=== PATIENT | female | born 1985 | race Caucasian/White ===

== ENCOUNTER → 2018-01-29 | Outpatient (CLI) | payer MEDICAID | END | disposition home or self-care (01) | LOC: LABWHC1 11:01 | PROVIDERS: ATTEND Obstetrics & Gynecology | DX: N92.6 Irregular menstruation, unspecified (principal); R14.0 Abdominal distension (gaseous) | CPT/HCPCS: 36415; 82670; 83001; 84144; 84403 ==

== ENCOUNTER 2019-01-25 21:05 | Outpatient (CLI) | payer MEDICAID ==
[2019-01-25 21:58] VITALS: BP 129/81; PULSE 112; RESP 16; TEMP 97.1
[2019-01-25 22:02] LABS: Amorphous Sediment,Urine Rare /hpf; Appearance,Urine Cloudy (Clear); Bacteria,Urine Moderate /hpf; Bilirubin,Urine Negative (Negative); Blood,Urine Negative (Negative); Color,Urine Yellow; Glucose,Urine (UA) Negative (Negative); Ketones,Urine Negative (Negative); Leukocyte Esterase,Urine Large (Negative); Mucus,Urine Few /hpf; Nitrite,Urine Negative (Negative); PH, Urine 6.5 (5.0-8.0); Protein,Urine Trace (Negative); RBC,Urine 2 /hpf (0-5); Specific Gravity,Urine 1.025 (1.001-1.035); Squamous Epithelial Cell,Urine 2 /hpf (0-4); WBC,Urine 4 /hpf (0-5)
--- NOTE | 2019-01-31 10:10 | P.MSEPDOC ---
Presenting Problems - Arrival Data Date of Arrival on Unit: 01/25/19 Time of Arrival on Unit: 21:32 Mode of Transport: Ambulatory - Complaint OB-Reason for Admission/Chief Complaint: Pain Comment: Lower back pain that is intermittant down bilateral legs. Medical History - Information : 3 Para: 2 Term: 2 : 0 Abortions: Spontaneous or Elective: 0 Number of Living Children: 2 - Gestational Age Gestational Age by DELORES (wks/days): 32 Weeks and 6 Days Review of Systems - Review of Systems Constitutional: No problems Breast: No problems ENT: No problems Cardiovascular: No problems Respiratory: No problems Gastrointestinal: No problems Genitourinary: No problems Musculoskeletal: No problems Neurological: No problems Skin: No problems Vital Signs - Temperature Temperature: 97.1 F Temperature Source: Temporal Artery Scan - Pulse Right Brachial Pulse Rate: 112 Pulse Assessment Method: Automatic Cuff - Respirations Respiratory Rate: 16 Oxygen Delivery Method: Room Air O2 Sat by Pulse Oximetry: 100 - Blood Pressure Right Arm Blood Pressure: 129/81 Blood Pressure Mean: 97 Blood Pressure Source: Automatic Cuff Medical Screen Scoring (Pre) - Cervical Exam Dilation: 0 cm = 0 Membranes: Intact - Uterine Contractions Frequency: N/A Duration: N/A Intensity: N/A - Maternal Vital Signs Maternal Temperature: N/A Maternal Blood Pressure: N/A Signs of Preeclampsia: N/A Maternal Respirations: N/A - Pain Assessment Pain Location and Character: Lower, Back Pain Scale Used: Numeric (1 - 10) Pain Intensity: 8 Pain Description: *Acute, Sore Pain Frequency: Intermittent Pain Duration Units: Minutes Pain Behavior: Facial Grimacing Pain Aggravating Factors: None - Assessment Baseline FHR: 130 Heart Rate - NICHD Category: Category I (Normal) = 0 NST: Reactive Position: N/A Station: N/A - Total Score Total Score (Pre): 0 - Level of Risk Level of Risk: Low (0-5) Physician Notification (Pre) - Physician Notified Physician Notified Date: 01/25/19 Physician Notified Time: 21:32 Physician/Practitioner Notifed:: Dr. Das Spoke With: Dr. Das New Order Received: Yes - Notification Comment Comment: Dr. Das called and given report on pt in tr. Pt c/o. VS wnl. Reactive NST. No. contractions noted per toco or palpation. Orders recieved to collect and send UA and. check cervix. If UA results are negative pt to be d/c to home. Disposition - Disposition OB Disposition: Discharge to home Discharge Date: 01/25/19 Discharge Time: 22:28 I agree with the RN Medical Screening Exam: Yes Risk & Benefit of care provided described in d/c instruction: Yes Diagnosis: LOW BACK PAIN
== END 2019-01-25 22:28 | disposition home or self-care (01) ==
LOC: FBPOP 21:05
PROVIDERS: ATTEND Obstetrics & Gynecology Obstetrics
DX: O99.89 Other specified diseases and conditions complicating pregnancy, childbirth and the puerperium (principal); M54.5 Low back pain; Z3A.32 32 weeks gestation of pregnancy
CPT/HCPCS: 59025; 81001; 87086; 99213

== ENCOUNTER 2019-03-09 09:58 | Inpatient (IN) | payer MEDICAID ==
[2019-03-09] MEDS ORDERED: ceFAZolin IN SWFI 2 GM/20 ML SYRINGE IVP ONE (10:36)
[2019-03-09] MEDS ORDERED: LACTATED RINGERS 1,000 ML IV SCH (10:36)
[2019-03-09] MEDS ORDERED: LACTATED RINGERS 1,000 ML IV ONE (10:36)
[2019-03-09] MEDS ORDERED: CITRIC ACID-SODIUM CITRATE 15 ML CUP PO ONE (10:36)
[2019-03-09 10:43] VITALS: BMI 32.9
[2019-03-09 11:30] LABS: Basophils % (A) 0 %; Eosinophils % (A) 0 %; HCT 33.8 % (34.0-46.0); HGB 10.9 gm/dL (11.4-16.0); Hypochromasia Slight; Lymphocytes # (A) 1.3 k/uL (1.0-4.8); Lymphocytes % (A) 18 %; MCH 29.6 pg (25.0-35.0); MCHC 32.2 g/dL (31.0-37.0); MCV 92.1 fL (80.0-100.0); Mean Platelet Volume 8.2; Monocytes # (A) 0.3 k/uL (0-1.0); Monocytes % (A) 4 %; Neutrophils # (A) 5.3 k/uL (1.3-7.7); Neutrophils % (A) 75 %; Platelet Count 193 k/uL (150-450); RBC 3.67 m/uL (3.80-5.40); RDW 14.6 % (11.5-15.5); WBC 7.1 k/uL (3.8-10.6)
[2019-03-09] MEDS ORDERED: OXYTOCIN 10 UNIT/ML 1 ML VIAL ONE (12:07)
[2019-03-09] MEDS ORDERED: KETOROLAC 30 MG/ML 1 ML VIAL ONE (12:07)
[2019-03-09] MEDS ORDERED: SUCCINYLCHOLINE CHLORIDE 100 MG/5 ML SYR IV ONE ×2 (12:07→16:02)
[2019-03-09] MEDS ORDERED: fentaNYL (PF) 50 MCG/ML 2 ML AMP ONE ×2 (12:07→16:02)
[2019-03-09] MEDS ORDERED: HYDROmorphone (PF) 1 MG/ML ONE (12:07)
[2019-03-09] MEDS ORDERED: PHENYLEPHRINE-0.9% NACL SYG 1 MG/10 ML SYRINGE ONE ×2 (12:07→16:02)
[2019-03-09] MEDS ORDERED: ONDANSETRON 4 MG/2 ML VIAL ONE (12:07)
[2019-03-09] MEDS ORDERED: PROPOFOL 10 MG/ML 20 ML VIAL IV ONE ×2 (12:07→16:02)
--- NOTE | 2019-03-09 13:09 | P.HPOB ---
History of Present Illness H&P Date: 03/09/19 Chief Complaint: Term with history of 2 previous low transverse ce sarean sections This is a 33-year-old 3 para 2001 woman who is admitted for scheduled repeat low transverse section and bilateral tubal ligation. She's had an uncomplicated . Please see the record for details. She is Rh+ and group B strep negative. She and her desire no further pregnancies and she has signed consent forms after being counseled for bilateral tubal ligation. Review of Systems All systems: negative Past Medical History Past Medical History: GERD/Reflux, Mitral Valve Prolapse (MVP), Thyroid Disorder Additional Past Medical History / Comment(s): heart murmer, varicose veins, hiatal hernia, thyroid nodules, spina bifida History of Any Multi-Drug Resistant Organisms: None Reported Past Surgical History: Section, Cholecystectomy, Hernia Repair Additional Past Surgical History / Comment(s): EGD Past Anesthesia/Blood Transfusion Reactions: No Reported Reaction Past Psychological History: No Psychological Hx Reported Smoking Status: Never smoker Past Alcohol Use History: None Reported Past Drug Use History: None Reported - Past Family History Mother Family Medical History: No Reported History Additional Family Medical History / Comment(s): arhtritis Medications and Allergies Home Medications Medication Instructions Recorded Confirmed Type Pnv,Calcium 72/Iron/Folic Acid 1 tab PO DAILY 01/25/19 03/09/19 History [ Plus Tablet] Omeprazole [PriLOSEC] 20 mg PO DIRECTED PRN 03/04/19 03/09/19 History Tums(Dose Unknown) 1 tab PO DIRECTED PRN 03/04/19 03/09/19 History Allergies Allergy/AdvReac Type Severity Reaction Status Date / Time bee venom protein (honey bee) Allergy Anaphylaxis Verified 03/04/19 13:18 latex Allergy Rash/Hives Verified 03/04/19 13:17 Exam Vital Signs Temp Pulse Resp BP Pulse Ox 03/09/19 10:38 98.8 F 99 15 122/75 98 This is a pleasant, visibly gravid, female in no obvious distress. Fundal height is equal to gestational age. Estimated weight 7-7-1/2 pounds. heart tones are reassuring by external monitoring. Results Result Diagrams: 03/09/19 11:00 Abnormal Lab Results - Last 24 Hours (Table) 03/09/19 Range/Units 11:00 RBC 3.67 L (3.80-5.40) m/uL Hgb 10.9 L (11.4-16.0) gm/dL Hct 33.8 L (34.0-46.0) % Assessment and Plan (1) 39 weeks gestation of Current Visit: Yes Status: Acute Code(s): Z3A.39 - 39 WEEKS GESTATION OF SNOMED Code(s): 10430737 (2) History of Current Visit: Yes Status: Acute Code(s): Z98.891 - HISTORY OF UTERINE SCAR FROM PREVIOUS SURGERY SNOMED Code(s): 600557194 (3) Family planning Current Visit: Yes Status: Acute Code(s): Z30.09 - ENCOUNTER FOR OT GENERAL CNSL AND ADVICE ON CONTRACEPTION SNOMED Code(s): 929280937 Plan: 33-year-old 3 para 2001 woman who is admitted for scheduled repeat low- transverse section at 39 weeks gestation. She's been counseled regarding alternative methods of contraception and she and her have determined the bilateral tubal ligation is therefore. Consents have been signed. Risks, benefits and alternatives to the section and tubal ligation have been reviewed with the patient and the office setting. She is group B strep negative and Rh+.
[2019-03-09] MEDS ORDERED: Acetaminophen-Codeine 300-30mg TAB PO PRN (13:11)
[2019-03-09] MEDS ORDERED: METOCLOPRAMIDE 5 MG/ML 2 ML VIAL IVP PRN (13:11)
[2019-03-09] MEDS ORDERED: ONDANSETRON 4 MG/2 ML VIAL IVP PRN (13:11)
[2019-03-09] MEDS ORDERED: KETOROLAC 30 MG/ML 1 ML VIAL IVP PRN (13:11)
[2019-03-09] MEDS ORDERED: diphenhydrAMINE 50 MG/ML 1 ML VIAL IVP PRN (13:11)
--- NOTE | 2019-03-09 13:11 | P.OP ---
Date of Procedure: 03/09/19 Preoperative Diagnosis: Previous low transverse section 2 Desires permanent sterility Postoperative Diagnosis: Same Procedure(s) Performed: Repeat low transverse section and bilateral tubal ligation with Filshie clips. Anesthesia: BALBIR Surgeon: Bianca Morelos Steel Handler #1: Edgar Olivia Estimated Blood Loss (ml): 600 IV fluids (ml): 1,700 Urine output (ml): 250 Pathology: none sent Condition: stable Disposition: PACU Indications for Procedure: Previous low transverse section 2 and dry her desire for permanent sterility Operative Findings: Male infant in the vertex presentation with nuchal cord 1. Apgars of 9 at 1 minute and 9 at 5 minutes. Weight 8 lbs. 1 oz. Intact, three-vessel cord placenta. Extensive scarring of the fascia to the rectus muscles anteriorly. Description of Procedure: After the patient was met preoperatively and all questions were answered, she was taken to the operating room where spinal anesthetic was unable to be administered secondary to patient's history of scoliosis. Gen. anesthetic was then was administered without incident. She was then positioned, prepped and draped in the dorsal supine position with a leftward tilt. Colmenares catheter was placed. After anesthetic was confirmed adequate, a low transverse skin incision was made following the pre-existing scar. This was carried down to the underlying fascia both sharply and with the electrocautery. The fascia was then incised in the midline and extended bilaterally with the Osborne scissors. The superior aspect of the fascial incision was elevated and the underlying rectus muscles dissected off sharply and with the electrocautery. The inferior aspect of the fascial incision was also elevated and the underlying rectus muscles dissected off sharply. The muscles were adherent in the midline. These were bluntly and the peritoneum was tented up with hemostats. The peritoneum was entered sharply with the Metzenbaum scissors. The peritoneal incision was extended inferiorly and superiorly with good visualization of the bladder. The bladder blade was placed. The vesicouterine peritoneum was identi fied, tented up and entered sharply, the bladder flap was created both sharply and digitally. A low transverse uterine incision was then made sharply and carried down to the underlying amniotic membranes. Membranes were ruptured and clear fluid was noted. The uterine incision was extended bilaterally bluntly. The infant's head was delivered from the incision without difficulty. The nose and mouth were bulb suctioned. The rest of the was delivered onto the field without difficulty. And cut and the infant was taken to the warmer. An intact, three-vessel cord placenta was then manually removed and the uterus was exteriorized. The uterus was cleared of all clot and debris. The uterine incision was delineated with Davis clamps. The uterine incision was then closed in a running locked fashion with 0 Vicryl suture. Additional [id number] sutures were placed where necessary along the incision for hemostasis. The right and left fallopian tubes were positively identified and carried out to the fimbriated ends. Filshie clip clips were then applied in the mid ampullary portion of the tubes completely transecting each tube. The uterus was then returned to the abdomen and the gutters were cleared of all clot and debris. The uterine incision was reinspected and Bovie electrocautery was utilized were necessary for hemostasis. The fascial edges, peritoneal edges and rectus muscles were inspected and Bovie electrocautery utilized were necessary for hemostasis. The fascia was then closed in a running fashion with 0 Vicryl suture. The subcuticular tissue was copiously suction irrigated and Bovie electrocautery utilized were necessary for hemostasis. 3-0 Vicryl suture was utilized to reapproximate the subcuticular tissue. The skin was then closed in a subcutaneous fashion with 4-0 Vicryl suture. All counts reported to me as correct by the operating room staff at the end of the procedure. The patient received antibiotics preoperatively and Pitocin following cord clamp. Mother and were both transported from the room in stable condition.
[2019-03-09] MEDS ORDERED: HYDROMORPHONE (PF) 10 MG in SODIUM CHLORIDE 0.9% 49 ML IV PRN (13:13)
[2019-03-09] MEDS ORDERED: NALOXONE 0.4 MG/ML 1 ML VIAL IV PRN ×2 (13:13→13:15)
[2019-03-09] MEDS ORDERED: METHYLERGONOVINE 0.2 MG/ML 1 ML AMP IM ONE (14:48)
[2019-03-09] MEDS: OXYTOCIN 20 UNITS/1000 ML NS 1,000 ML IV SCH ×2 (15:30→18:30)
[2019-03-09] MEDS ORDERED: METHYLERGONOVINE 0.2 MG/ML 1 ML AMP ONE (16:02)
[2019-03-09] MEDS ORDERED: MIDAZOLAM 2 MG/2 ML VIAL ONE (16:02)
[2019-03-09] MEDS ORDERED: CARBOPROST TROMETHAMINE 250 MCG/ML 1 ML AMP IM ONE (16:02)
[2019-03-09 16:16] LABS: Basophils % (A) 0 %; Eosinophils % (A) 0 %; HCT 26.8 % (34.0-46.0); Hypochromasia Slight; Lymphocytes # (A) 1.7 k/uL (1.0-4.8); Lymphocytes % (A) 15 %; MCH 29.6 pg (25.0-35.0); MCHC 31.7 g/dL (31.0-37.0); MCV 93.3 fL (80.0-100.0); Mean Platelet Volume 8.2; Monocytes # (A) 0.5 k/uL (0-1.0); Monocytes % (A) 4 %; Neutrophils # (A) 9.5 k/uL (1.3-7.7); Neutrophils % (A) 80 %; Platelet Count 221 k/uL (150-450); RBC 2.87 m/uL (3.80-5.40); WBC 11.9 k/uL (3.8-10.6)
[2019-03-09] MEDS ORDERED: MISOPROSTOL 200 MCG TAB RECTAL STA (16:21)
[2019-03-09 16:30] LABS: INR 0.9 (<1.2); Partial Thromboplastin Time 21.7 sec (22.0-30.0)
[2019-03-09 16:38] LABS: HGB 8.5 gm/dL (11.4-16.0)
--- NOTE | 2019-03-09 17:34 | P.OP ---
Date of Procedure: 03/09/19 Preoperative Diagnosis: Uterine atony hemorrhage Hypotension Postoperative Diagnosis: Same Procedure(s) Performed: D&C Anesthesia: BALBIR Surgeon: Bianca Morelos Estimated Blood Loss (ml): 500 IV fluids (ml): 1,250 Urine output (ml): 30 Pathology: none sent Condition: stable Disposition: floor Indications for Procedure: This is a 33-year-old 3 para 3 woman who underwent a routine and uncomplicated repeat low transverse section and bilateral tubal ligation at 12 PM today. The surgery was unremarkable and EBL was approximately 600 mL's. At approximately 4 PM the patient was found to be very pale and have heavy vaginal bleeding. The emulsion operator was uterine atony with some clots expressed on bimanual exam. She was receiving Pitocin in her intravenous fluids. I rapidly was called to the bedside and evaluated the patient. She was found to be very pale and with systolic blood pressures in the 70s and diastolic blood pressures in the 30s to 40s. Her pulse was greater than 1:30. On bimanual examination the uterus was of a firm but was above the level of the umbilicus and shifted to the right. Secondary to the patient's significant discomfort was difficult to feel the cervix however it was felt to be firm and approximately 2- 3 cm dilated. I was unable to adequately evacuate of the palpable clot through this cervix. The decision therefore was made to proceed to the operating room for dilation and curettage. My impression of uterine atony and need for immediate intervention was discussed with the patient and her who was in attendance in the room. Verbal consent was obtained. Type and cross for 2 units of blood was ordered. The patient continued with an additional 20 units of Pitocin in her IV for a 1000 mL bolused. She also received 1 dose of IM Methergine preoperatively. The anesthesia team was notified about ongoing significant obstetrical hemorrhage was immediately available. Operative Findings: The patient was rapidly transported to the operating room where general anesthetic was administered without incident. She was positioned, prepped and draped in the high lithotomy position. Colmenares catheter was in place. Bimanual examination was undertaken and the cervix was 3 cm dilated and firm. Some clot and debris was immediately expressed. The cervix was then visualized using a weighted speculum in the vagina and was grasped with a tenaculum. The large banjo curette was then gently introduced into the uterus and clot was evacuated. There was a small amount of membranous material as well. On bimanual e xamination the uterus was felt to be firmer, more in the midline and decreased in size however there still was palpable clot therefore the banjo curette was again reintroduced as well as the ring forceps to evacuate further clot. At this time the uterus felt firm with no heavy active bleeding ongoing. The patient was reassessed by Dr. Grupo Head who is in agreement that the uterus was firm, midline, approximately 16 weeks' size with no large additional clot palpable. Intraoperatively the patient received: 1000 units of IV fluid with 20 units of Pitocin 250 mg of 5% albumin IM Methergine 1 Cytotec 800 g rectal suppository Hemabate IM 1 The patient was observed for approximately 10 minutes after completion of the D&C and the uterus remained firm, 16 weeks' size and in the midline. She had appropriate scant lochia with no clots. There was a small amount of clear urine in the tubing of the Colmenares catheter. The patient's vital signs were stable. EBL intraoperatively was 500 mL's however she likely lost approximately 1000 mL's preoperatively. Her preoperative hemoglobin was 10.9 and intraoperative hemoglobin was 8.5. Due to the significant hemorrhage, severe hypotension and tachycardia she will likely need her at a critical hemoglobin value therefore 1 unit of packed red blood cells was transfused immediately postoperatively. Description of Procedure: See above.
[2019-03-09] MEDS: ACETAMINOPHEN IV (For NPO) 1,000 MG in EMPTY BAG 1 BAG IVPB SCH (18:12)
[2019-03-09 19:23] LABS: HCT 23.1 % (34.0-46.0); HGB 7.7 gm/dL (11.4-16.0); MCH 30.2 pg (25.0-35.0); MCHC 33.5 g/dL (31.0-37.0); Mean Platelet Volume 8.2; Platelet Count 139 k/uL (150-450); Poikilocytosis Slight; RBC 2.56 m/uL (3.80-5.40); RDW 14.2 % (11.5-15.5); WBC 12.4 k/uL (3.8-10.6)
[2019-03-09] MEDS: LACTATED RINGERS 1,000 ML IV SCH (19:50)
[2019-03-09] MEDS: ceFAZolin IN SWFI 2 GM/20 ML SYRINGE IVP SCH (20:20)
[2019-03-09] MEDS: BENZOCAINE/MENTHOL LOZENG 1 EACH LOZENGE MUCOUS MEM PRN (21:55)
[2019-03-09] MEDS ORDERED: METHYLERGONOVINE 0.2 MG TAB PO SCH (22:00)
[2019-03-09] MEDS: SENNOSIDES-DOCUSATE SODIUM 1 EACH TAB PO SCH (22:32)
[2019-03-10] MEDS: LACTATED RINGERS 1,000 ML IV SCH ×2 (00:03→08:17)
[2019-03-10] MEDS: ACETAMINOPHEN IV (For NPO) 1,000 MG in EMPTY BAG 1 BAG IVPB SCH (02:07)
[2019-03-10] MEDS: SIMETHICONE 80 MG CHEWABLE PO PRN ×3 (02:26→18:11)
[2019-03-10] MEDS: ceFAZolin IN SWFI 2 GM/20 ML SYRINGE IVP SCH ×3 (03:59→20:17)
[2019-03-10] MEDS: BENZOCAINE/MENTHOL LOZENG 1 EACH LOZENGE MUCOUS MEM PRN ×3 (05:56→15:32)
--- NOTE | 2019-03-10 07:55 | P.PNOBGPC ---
Subjective - Subjective Principal diagnosis: Status post section, hemorrhage Interval history: She is feeling significantly better this morning. She has not been out of bed. RN report of significantly decreased vaginal bleeding, firm uterus throughout the night. She has having some pain but is tolerating liquids and denies nausea or vomiting. No shortness of breath or chest pain. Patient reports: Reports pain poorly controlled, Denies nauseated [place]: doing well Objective - Vital Signs Latest vital signs: Vital Signs Temp Pulse Pulse Resp BP BP Pulse Ox 03/10/19 06:00 102 H 16 109/55 03/10/19 04:10 98.3 F 110 H 16 92/55 97 03/10/19 02:15 98.4 F 108 H 16 100/57 98 03/10/19 00:01 98.4 F 105 H 16 111/66 99 03/09/19 21:45 98.2 F 104 H 16 104/57 98 03/09/19 19:25 98.0 F 100 16 100/59 03/09/19 19:00 97.7 F 104 H 16 93/58 03/09/19 17:59 100 15 97/64 99 03/09/19 17:45 110 H 15 93/55 99 03/09/19 17:30 95 15 102/50 98 03/09/19 17:20 96.2 F L 110 H 14 102/50 99 03/09/19 17:14 96.2 F L 129 H 15 113/58 98 03/09/19 15:50 130 H 16 93/70 03/09/19 15:44 131 H 15 63/40 03/09/19 15:35 136 H 15 79/48 03/09/19 15:26 136 H 16 77/47 03/09/19 15:20 115 H 16 70/39 03/09/19 15:05 111 H 15 91/57 03/09/19 14:50 86 15 98/68 03/09/19 14:45 88 15 96/96 03/09/19 14:14 88 15 105/67 100 03/09/19 14:08 100 03/09/19 13:45 86 15 124/68 99 03/09/19 13:30 94 15 121/61 99 03/09/19 13:15 96.6 F L 96 15 123/71 93 L 03/09/19 10:38 98.8 F 99 15 122/75 98 Intake and Output 03/09/19 03/10/19 03/10/19 22:59 06:59 14:59 Intake Total 2970 200 Output Total 2620 1100 Balance 350 -900 Intake: Intake, IV Titration 2460 Amount Lactated Ringers 1,000 ml 2100 @ 100 mls/hr IV .Q10H NEIL Rx#:[id number] Oxytocin 20 Units/1000 ml 360 Ns 1,000 ml @ Per Protocol IV .Q0M NEIL Rx#: [id number] Oral 200 200 Blood Product 310 Rc As-1 Unit 310 [id number] Output: Urine 1450 1100 Other 1170 Other: Voiding Method Indwelling Catheter Indwelling Catheter - Exam Lungs: bilateral: normal Extremities: Present: edema Abdomen: Present: soft, distention, tenderness Incision: Present: dry, intact, dressed Uterus: Present: normal, firm, tenderness - Labs Labs: Abnormal Lab Results - Last 24 Hours (Table) 03/09/19 03/09/19 03/09/19 Range/Units 11:00 11:00 16:10 WBC 11.9 H (3.8-10.6) k/uL RBC 3.67 L 2.87 L (3.80-5.40) m/uL Hgb 10.9 L 8.5 L D (11.4-16.0) gm/dL Hct 33.8 L 26.8 L (34.0-46.0) % Plt Count (150-450) k/uL Neutrophils # 9.5 H (1.3-7.7) k/uL APTT (22.0-30.0) sec Crossmatch See Detail 03/09/19 03/09/19 Range/Units 16:10 19:00 WBC 12.4 H (3.8-10.6) k/uL RBC 2.56 L (3.80-5.40) m/uL Hgb 7.7 L (11.4-16.0) gm/dL Hct 23.1 L (34.0-46.0) % Plt Count 139 L (150-450) k/uL Neutrophils # (1.3-7.7) k/uL APTT 21.7 L (22.0-30.0) sec Crossmatch Assessment and Plan (1) 39 weeks gestation of Current Visit: Yes Status: Acute Code(s): Z3A.39 - 39 WEEKS GESTATION OF SNOMED Code(s): 88585045 (2) History of Current Visit: Yes Status: Acute Code(s): Z98.891 - HISTORY OF UTERINE SCAR FROM PREVIOUS SURGERY SNOMED Code(s): 169065987 (3) Family planning Current Visit: Yes Status: Acute Code(s): Z30.09 - ENCOUNTER FOR OT GENERAL CNSL AND ADVICE ON CONTRACEPTION SNOMED Code(s): 251560109 (4) atony of uterus with hemorrhage Current Visit: Yes Status: Acute Code(s): O72.1 - OTHER IMMEDIATE HEMORRHAGE SNOMED Code(s): 47788269 Plan: Postop day 1 status post scheduled repeat low transverse section with bilateral tubal ligation and return to operating room for exam under anesthesia and D&C for uterine atony and hemorrhage. She has been mildly tachycardic and hypotensive throughout the night however has had excellent urine output. She has minimal vaginal bleeding at this time on oral Methergine. She did receive 1 unit of packed red blood cells immediately post operatively and a follow-up hemoglobin last night was 7.7. A.m. labs are pending. Plan is to discontinue DELICATESSEN CLERK, Hep-Lock IV, DC Colmenares catheter, advance diet and ambulate with assist. Events of the yesterday were reviewed again with the patient and her and all questions were answered. She is currently nursing successfully.
[2019-03-10] MEDS: SENNOSIDES-DOCUSATE SODIUM 1 EACH TAB PO SCH ×2 (07:59→19:23)
[2019-03-10] MEDS: IBUPROFEN 600 MG TAB PO PRN ×3 (07:59→20:16)
[2019-03-10 08:13] LABS: Basophils % (A) 0 %; Eosinophils # (A) 0.1 k/uL (0-0.7); Eosinophils % (A) 1 %; HCT 20.8 % (34.0-46.0); Hypochromasia Slight; Lymphocytes # (A) 1.4 k/uL (1.0-4.8); Lymphocytes % (A) 20 %; MCH 29.9 pg (25.0-35.0); MCHC 32.8 g/dL (31.0-37.0); Mean Platelet Volume 8.3; Monocytes # (A) 0.4 k/uL (0-1.0); Monocytes % (A) 5 %; Neutrophils # (A) 4.9 k/uL (1.3-7.7); Neutrophils % (A) 72 %; Platelet Count 161 k/uL (150-450); Poikilocytosis Slight; RBC 2.29 m/uL (3.80-5.40); RDW 15.3 % (11.5-15.5); WBC 6.8 k/uL (3.8-10.6)
[2019-03-10 08:16] LABS: HGB 6.8 gm/dL (11.4-16.0)
[2019-03-10] MEDS: HYDROcodone/APAP 5-325MG 1 EACH TAB PO PRN ×3 (11:23→23:01)
[2019-03-11] MEDS: IBUPROFEN 600 MG TAB PO PRN ×4 (02:03→20:17)
[2019-03-11] MEDS: ceFAZolin IN SWFI 2 GM/20 ML SYRINGE IVP SCH (04:37)
[2019-03-11] MEDS: HYDROcodone/APAP 5-325MG 1 EACH TAB PO PRN ×4 (04:39→22:53)
[2019-03-11 06:46] LABS: Hypochromasia Slight; MCH 30.2 pg (25.0-35.0); MCV 91.4 fL (80.0-100.0); Mean Platelet Volume 8.7; Platelet Count 152 k/uL (150-450); Poikilocytosis Slight; RBC 2.16 m/uL (3.80-5.40); RDW 15.3 % (11.5-15.5); WBC 7.3 k/uL (3.8-10.6)
[2019-03-11 06:57] LABS: HCT 19.8 % (34.0-46.0); HGB 6.5 gm/dL (11.4-16.0)
[2019-03-11] MEDS: SIMETHICONE 80 MG CHEWABLE PO PRN ×2 (08:16→14:04)
[2019-03-11] MEDS: SENNOSIDES-DOCUSATE SODIUM 1 EACH TAB PO SCH ×2 (08:16→20:17)
--- NOTE | 2019-03-11 08:59 | P.PNOBGPC ---
Subjective - Subjective Principal diagnosis: POD 2 S/P RLTCS/BTL, PP D&C Interval history: Pain better controlled today. Has been amubulating, no dizziness. Tolerating general diet. Minimal lochia. Hgb this am 6.5, stable from yesterday, 6.8. C/o sore throat. Patient reports: Reports appetite normal, Reports voiding normally, Reports pain well controlled, Reports ambulating normally, Denies dizzy ambulation [place]: doing well Objective - Vital Signs Latest vital signs: Vital Signs Temp Pulse Resp BP Pulse Ox 03/11/19 04:00 97.7 F 86 16 91/55 03/10/19 23:42 98.2 F 94 16 101/57 03/10/19 19:56 99.4 F 124 H 16 119/66 98 03/10/19 16:00 98.7 F 102 H 16 106/64 97 03/10/19 12:00 98.4 F 102 H 18 96/55 98 Intake and Output 03/10/19 03/11/19 03/11/19 22:59 06:59 14:59 Other: # Voids 1 2 - Exam Extremities: Present: normal. Absent: edema Abdomen: Present: normal appearance, soft. Absent: distention, tenderness Incision: Present: normal, dry, intact. Absent: erythematous Uterus: Present: normal, firm, tenderness - Labs Labs: Abnormal Lab Results - Last 24 Hours (Table) 03/09/19 03/11/19 Range/Units 11:00 06:28 RBC 2.16 L (3.80-5.40) m/uL Hgb 6.5 L* (11.4-16.0) gm/dL Hct 19.8 L* (34.0-46.0) % Crossmatch See Detail Assessment and Plan (1) 39 weeks gestation of Current Visit: Yes Status: Acute Code(s): Z3A.39 - 39 WEEKS GESTATION OF SNOMED Code(s): 05466521 (2) History of Current Visit: Yes Status: Acute Code(s): Z98.891 - HISTORY OF UTERINE SCAR FROM PREVIOUS SURGERY SNOMED Code(s): 164594730 (3) Family planning Current Visit: Yes Status: Acute Code(s): Z30.09 - ENCOUNTER FOR OT GENERAL CNSL AND ADVICE ON CONTRACEPTION SNOMED Code(s): 255843635 (4) atony of uterus with hemorrhage Current Visit: Yes Status: Acute Code(s): O72.1 - OTHER IMMEDIATE HEMORRHAGE SNOMED Code(s): 20085888 (5) Postoperative anemia due to acute blood loss Current Visit: Yes Status: Acute Code(s): D62 - ACUTE POSTHEMORRHAGIC ANEMIA SNOMED Code(s): 88072244793235300 Plan: Postop day 2 status post scheduled repeat low transverse section with bilateral tubal ligation and return to operating room for exam under anesthesia and D&C for uterine atony and hemorrhage. Feeling much better this am. She has minimal vaginal bleeding at this time. AM hgb 6.5. Plan is to discontinue antibiotics, shower, ambulate. Probable d/c home tomorrow. She is currently nursing successfully.
[2019-03-11] MEDS: LACTATED RINGERS 1,000 ML IV SCH (23:30)
[2019-03-12] MEDS: IBUPROFEN 600 MG TAB PO PRN ×3 (03:07→20:38)
[2019-03-12] MEDS: HYDROcodone/APAP 5-325MG 1 EACH TAB PO PRN ×2 (07:54→15:57)
--- NOTE | 2019-03-12 08:06 | P.PNOBGPC ---
Subjective - Subjective Principal diagnosis: POD 3 s/p RLTCS, BTL, PP D&C Interval history: admitted to [facility] for elevated bilirubin. Otherwise feeling well. Patient reports: Reports appetite normal, Reports voiding normally, Reports pain well controlled, Reports ambulating normally, Denies dizzy ambulation : other (bilirubin elevated) Objective - Vital Signs Latest vital signs: Vital Signs Temp Pulse Resp BP Pulse Ox 03/11/19 23:25 98.2 F 103 H 18 102/69 98 03/11/19 20:00 98.3 F 105 H 16 122/72 100 03/11/19 16:00 98.4 F 107 H 16 124/75 Intake and Output 03/11/19 03/12/19 03/12/19 22:59 06:59 14:59 Other: # Voids 1 2 - Exam Abdomen: Present: normal appearance, soft. Absent: distention Incision: Present: normal, dry, intact Uterus: Present: normal, firm. Absent: tenderness Assessment and Plan (1) 39 weeks gestation of Current Visit: Yes Status: Acute Code(s): Z3A.39 - 39 WEEKS GESTATION OF SNOMED Code(s): 39505874 (2) History of Current Visit: Yes Status: Acute Code(s): Z98.891 - HISTORY OF UTERINE SCAR FROM PREVIOUS SURGERY SNOMED Code(s): 558826257 (3) Family planning Current Visit: Yes Status: Acute Code(s): Z30.09 - ENCOUNTER FOR OT GENERAL CNSL AND ADVICE ON CONTRACEPTION SNOMED Code(s): 209490631 (4) atony of uterus with hemorrhage Current Visit: Yes Status: Acute Code(s): O72.1 - OTHER IMMEDIATE HEMORRHAGE SNOMED Code(s): 66423428 (5) Postoperative anemia due to acute blood loss Current Visit: Yes Status: Acute Code(s): D62 - ACUTE POSTHEMORRHAGIC ANEMIA SNOMED Code(s): 91928310616944804 Plan: POD s/p LTCS BTL, PP D&C for uterine atony. She has recovered well. D/C home tomorrow as baby has been admitted for bilirubin elevation.
[2019-03-12] MEDS: SENNOSIDES-DOCUSATE SODIUM 1 EACH TAB PO SCH ×2 (16:33→20:38)
[2019-03-13 01:18] VITALS: RESP 16
[2019-03-13] MEDS: IBUPROFEN 600 MG TAB PO PRN (04:08)
--- NOTE | 2019-03-13 05:24 | P.DS ---
Providers Date of admission: 03/09/19 09:58 Expected date of discharge: 03/13/19 Attending physician: Bianca Morelos Primary care physician: Stated None Hospital Course: This is a 33-year-old white female 3 para 2002 EDC 03/16/2019 at 39 weeks gestation. Patient presented for repeat section and tubal ligation. was essentially unremarkable, rubella status immune, blood type AB positive, group B strep cultures negative. Please see dictated history and physical for details. Patient underwent a repeat low transverse section with tubal ligation. She gave to a liveborn male with scores of 9 and 9 at one and 5 minutes respectively. Infant weight 8 lbs. 1 oz. or 3670 g. Gen. anesthetic was needed for inability to obtain adequate spinal analgesia, scoliosis of the spine noted. Please see dictated delivery note for details. Shortly after the section in the early . The patient's abdomen was noted to be distended and tense. hemorrhage was noted. Patient was brought back to the operating room and a D&C was performed. She did well intraoperatively, please see second dictated operative note for details. This morning the patient is doing well. She is voiding, ambulating and passing flatus without difficulty. Vital signs are stable and she is afebrile. She is breast-feeding, I have given her prescription for a double electric breast pump. Fundus is firm and in the midline, symmetric and 18 week size. There is minimal lochia rubra at this time. The incision is clean and dry, intact, with Steri-Strips applied. It is nontender. infant is doing well. Patient is judged to be in good condition for discharge home. Hemoglobin is 6.5, however vital signs are stable and she is afebrile. She has received 1 unit of packed red blood cells. She denies dizziness, lightheadedness or any other complaints. Patient will follow-up with Dr. Morelos in the office in 2 weeks. She has been given a prescription for [place] to be used every 4 hours as needed for pain. She will call with any fevers shakes or chills, foul smelling or copious lochia, with the passage of large blood clots, with any difficulties questions or concerns. She will initiate ferrous sulfate, 325 mg twice daily at home, and continue taking her vitamin daily. Infant will follow-up with trust manager assistant as recommended. Patient Condition at Discharge: Good Plan - Discharge Summary Discharge Rx Participant: No New Discharge Prescriptions: No Action Pnv,Calcium 72/Iron/Folic Acid [ Plus Tablet] 1 tab PO DAILY Omeprazole [PriLOSEC] 20 mg PO DIRECTED PRN PRN Reason: Heartburn Tums(Dose Unknown) 1 tab PO DIRECTED PRN PRN Reason: Heartburn Discharge Medication List Pnv,Calcium 72/Iron/Folic Acid [ Plus Tablet] 1 tab PO DAILY 01/25/19 [History] Omeprazole [PriLOSEC] 20 mg PO DIRECTED PRN 03/04/19 [History] Tums(Dose Unknown) 1 tab PO DIRECTED PRN 03/04/19 [History] Follow up Appointment(s)/Referral(s): Bianca Morelos MD [STAFF PHYSICIAN] - 2 Weeks
[2019-03-13] MEDS: SENNOSIDES-DOCUSATE SODIUM 1 EACH TAB PO SCH (08:00)
[2019-03-13] MEDS: HYDROcodone/APAP 5-325MG 1 EACH TAB PO PRN ×2 (08:32)
[2019-03-13 08:40] VITALS: BP 111/62; PULSE 104; TEMP 98.2
== END 2019-03-13 12:44 | disposition home or self-care (01) | DRG 783 ==
LOC: 4FBP 09:58
PROVIDERS: ADMIT Obstetrics & Gynecology; ATTEND Obstetrics & Gynecology
PROC: 0UL70CZ Occlusion of Bilateral Fallopian Tubes with Extraluminal Device, Open Approach (ICD-10-PCS; 2019-03-09)
PROC: 10D17ZZ Extraction of Products of Conception, Retained, Via Natural or Artificial Opening (ICD-10-PCS; 2019-03-09)
PROC: 30233N1 Transfusion of Nonautologous Red Blood Cells into Peripheral Vein, Percutaneous Approach (ICD-10-PCS; 2019-03-09)
PROC: 10D00Z1 Extraction of Products of Conception, Low, Open Approach (ICD-10-PCS; principal; 2019-03-09 12:00)
DX: O69.81X0 Labor and delivery complicated by cord around neck, without compression, not applicable or unspecified (principal); O99.42 Diseases of the circulatory system complicating childbirth; O72.1 Other immediate postpartum hemorrhage; D62 Acute posthemorrhagic anemia; I95.9 Hypotension, unspecified; M41.9 Scoliosis, unspecified; O34.211 Maternal care for low transverse scar from previous cesarean delivery; I34.1 Nonrheumatic mitral (valve) prolapse; O99.89 Other specified diseases and conditions complicating pregnancy, childbirth and the puerperium; Q05.9 Spina bifida, unspecified; O99.62 Diseases of the digestive system complicating childbirth; K21.9 Gastro-esophageal reflux disease without esophagitis; K44.9 Diaphragmatic hernia without obstruction or gangrene; O99.284 Endocrine, nutritional and metabolic diseases complicating childbirth; E04.1 Nontoxic single thyroid nodule; O87.4 Varicose veins of lower extremity in the puerperium; O99.02 Anemia complicating childbirth; Z37.0 Single live birth; Z3A.39 39 weeks gestation of pregnancy; Z90.49 Acquired absence of other specified parts of digestive tract; Z91.030 Bee allergy status; Z91.040 Latex allergy status; Z30.2 Encounter for sterilization
CPT/HCPCS: 85025; 85027; 85610; 85730; 86850; 86900; 86901; 86920

== ENCOUNTER → 2019-04-20 | Outpatient (CLI) | payer MEDICAID ==
--- NOTE | 2019-04-20 11:19 | MR ---
EXAMINATION TYPE: MR lumbar spine wo con DATE OF EXAM: 04/20/2019 COMPARISON: MR lumbar spine 10/14/[address] 10/20/2014 HISTORY: Low back pain, degeneration TECHNIQUE: Multiplanar, multisequence images of the lumbar spine were acquired. L1-L2: Normal disc appearance without desiccation. No herniation, protrusion or disc bulging. No ca nal stenosis is present. Foramina are patent bilaterally. L2-L3: Normal disc appearance without desiccation. No herniation, protrusion or disc bulging. No ca nal stenosis is present. Foramina are patent bilaterally. L3-L4: Normal disc appearance without desiccation. No herniation, protrusion or disc bulging. No ca nal stenosis is present. Foramina are patent bilaterally. L4-L5: Normal disc appearance without desiccation. No herniation, protrusion or disc bulging. No ca nal stenosis is present. Foramina are patent bilaterally. L5-S1: The listhesis is associated with some loss of disc height signal, endplate discogenic marrow s ignal change. Listhesis also contributes to cause bilateral foraminal encroachment. No evident disc h erniation. Lumbar segments are intact. No paraspinal masses are identified. Conus medullaris has a normal appe arance. There is a levoscoliosis as noted on prior exam. Anterolisthesis grade 1 again seen L5-S1 wit h associated spondylolysis. 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 IMPRESSION: Findings similar to prior exams. Scoliosis. Spondylolysis and spondylolisthesis L5-S1.
== END | disposition home or self-care (01) ==
LOC: RADMRIMAIN 07:57
PROVIDERS: ATTEND Family Medicine
DX: M47.817 Spondylosis without myelopathy or radiculopathy, lumbosacral region (principal); M43.17 Spondylolisthesis, lumbosacral region; M41.86 Other forms of scoliosis, lumbar region; R20.2 Paresthesia of skin
CPT/HCPCS: 72148

== ENCOUNTER → 2019-05-04 | Outpatient (CLI) | payer MEDICAID ==
[2019-05-04 14:33] VITALS: BP 120/83; PULSE 84; RESP 16
--- NOTE | 2019-05-04 16:28 | P.PAINCN ---
History of Present Illness - Reason for Consult Consult date: 05/04/19 - History of Present Illness Patient is a 34-year-old female was referred to our clinic for low back pain. 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 This has worsened over time. Most recently she did deliver her child 2 months ago. She has had 3 total children and has had difficult spinal's on the first and third child. In fact on her most recent delivery 2 months ago there were not able to perform the spinal and she had to repeat the sleep for her . She became tearful when describing this. Her predominant pain is in her low back however she does have pain that radiates down the leg into the top and bottom of her foot. Pain is worse after a long day of activity especially taking care of the children. She is looking for ways to better manage her pain. Currently she is taking [id number] NSAIDs and Tylenol although he does have a history of gastritis. She did do a session of PT about 5 years ago when her pain began she has not done physical therapy more recently Review of Systems All systems: negative Musculoskeletal: Reports low back pain Past Medical History Past Medical History: Osteoarthritis (OA) Additional Past Medical History / Comment(s): Mitral valve prolapse with heart murmer, varicose veins, hiatal hernia, thyroid nodules, spina bifida, chronic gastritis, DDD, spinal stenosis, states back injury at work 4-5 yrs ago and several attempts for spinal anesthesia for 02/2019., Has open C- section wound that is healing from inside out., states hemorrhage after c- section and had D&C/blood transfusion- anemic History of Any Multi-Drug Resistant Organisms: None Reported Past Surgical History: Section, Cholecystectomy Additional Past Surgical History / Comment(s): EGD, UMBILICAL HERNIA., WITH TUBAL LIGATION (03/09/2019), POST D & C FOR HEMORRHAGE. 02/2019, Past Anesthesia/Blood Transfusion Reactions: No Reported Reaction Additional Past Anesthesia/Blood Transfusion Reaction / Comm: STATES 5-6 UNSUCCESSFUL ATTEMPTS FOR SPINAL WITH Past Psychological History: No Psychological Hx Reported Smoking Status: Never smoker Past Alcohol Use History: None Reported Past Drug Use History: None Reported - Past Family History Mother Family Medical History: No Reported History Additional Family Medical History / Comment(s): arhtritis Medications and Allergies Home Medications Medication Instructions Recorded Confirmed Type Pnv,Calcium 72/Iron/Folic Acid 1 tab PO DAILY 01/25/19 05/04/19 History [ Plus Tablet] Acetaminophen Tab [Tylenol Tab] 650 mg PO Q6H PRN MDD P 05/03/19 05/04/19 History Ibuprofen [Motrin Ib] 600 mg PO DIRECTED PRN 05/03/19 05/04/19 History Allergies Allergy/AdvReac Type Severity Reaction Status Date / Time bee venom protein (honey bee) Allergy Anaphylaxis Verified 05/04/19 14:28 latex Allergy Rash/Hives Verified 05/04/19 14:28 Physical Exam Vitals: Vital Signs Pulse Resp BP Pulse Ox 05/04/19 14:28 84 16 120/83 96 Gen: WDWN, AAOx3, NAD HEENT: NCAT, EOMI, hearing grossly normal Pulm: resp unlabored Abd: soft, NT, ND Neck: supple, trachea midline ROM in flexion lumbar spine: Normal, flexion did cause some pain ROM in extension lumbar spine: Normal Lumbar paravertebral tenderness: With deep palpation Facet loading: Negative SI joint tenderness: Negative Straight leg raise: Negative Neuro: muscle strength lower extremities 5/5 Assessment and Plan Assessment: Assessment and plan: 1. Degenerative Disc Disease 2. Lumbar radicular pain 1. Interventions given her neuroforaminal narrowing at L5-S1 and her previous trauma with spinal. Will schedule her for bilateral L5-S1 transforaminal epidural injection with sedation 2. Physical Therapy referral was placed 3. Medications she does have gastritis and continues to take NSAIDs. Did offer her mobic. This was not prescribed that she can call in for the medication or can be discussed at the next clinic visit 4. Imaging lumbar MRI reviewed 5. Referrals none 6. Follow up for procedure PQRS Measure Charge Sheet PQRS Narrative: Smoking Status Never smoker Blood Pressure 120/83 Pain Intensity [Back] 5 Scale Used Numeric (1 - 10) Hx Alcohol Use (MH) No Home Medications: Ambulatory Orders Pnv,Calcium 72/Iron/Folic Acid [ Plus Tablet] 1 tab PO DAILY 01/25/19 Acetaminophen Tab [Tylenol Tab] 650 mg PO Q6H PRN MDD P 05/03/19 Ibuprofen [Motrin Ib] 600 mg PO DIRECTED PRN 05/03/19
== END | disposition home or self-care (01) ==
LOC: PNWHC3 13:02
PROVIDERS: ATTEND Student in an Organized Health Care Education/Training Program
DX: M51.16 Intervertebral disc disorders with radiculopathy, lumbar region (principal); M19.90 Unspecified osteoarthritis, unspecified site; Z91.040 Latex allergy status; Z91.030 Bee allergy status; Z79.1 Long term (current) use of non-steroidal anti-inflammatories (NSAID); Z79.899 Other long term (current) drug therapy
CPT/HCPCS: 99211

== ENCOUNTER 2019-05-10 05:50 | Day surgery (SDC) | payer MEDICAID ==
[2019-05-10] MEDS ORDERED: LACTATED RINGERS 1,000 ML IV ONE (06:20)
[2019-05-10 06:37] VITALS: RESP 16; TEMP 98.2
[2019-05-10] MEDS ORDERED: IV FLUID CONTINUATION 1,000 ML IV ONE (07:27)
[2019-05-10] MEDS ORDERED: LACTATED RINGERS 1,000 ML IV SCH (07:33)
[2019-05-10 07:53] VITALS: BP 103/61; PULSE 78
--- NOTE | 2019-05-10 07:59 | FL ---
EXAMINATION TYPE: FL guided pain mgmt statistic DATE OF EXAM: 05/10/2019 HISTORY: Pain 22 sec fl, 10 films
--- NOTE | 2019-05-10 09:29 | P.PCN ---
Date of Procedure: 05/10/19 Procedure(s) Performed: PREOPERATIVE DIAGNOSIS: Lumbar radiculopathy POSTOPERATIVE DIAGNOSIS: Lumbar radiculopathy Attending physician: Argenis Guardado M.D. PROCEDURE 1. Transforaminal epidural steroid injection under fluoroscopic guidance L5-S1 level, bilateral side 2. Lumbar epidurogram ANESTHESIA: Local with 1% lidocaine 3 ml ; IV sedation with Versed and fentanyl PROCEDURE INDICATION: The patient with low back pain and radiculopathy symptoms unresponsive to conservative treatment. Fluoroscopy was used for the procedure and fluoroscopic images were saved to the radiology portion of patient's chart. PROCEDURE DESCRIPTION / TECHNIQUE: The patient was seen and identified in the preoperative area. Risks, benefits, complications, and alternatives were discussed with the patient. The patient agreed to proceed with the procedure and signed the consent. IV was started, and vital signs were stable. Patient was taken to the OR and time out was completed. The patient was placed in the prone position on procedure table and a pillow was placed under the abdomen to reduce lumbar lordosis. The lumbosacral area was prepped and draped in the usual sterile fashion. Vital signs were closely monitored during the procedure. Conscious sedation was used. Using oblique fluoroscopy, the chin of the ``Nolan dog and the skin and deeper tissues just below was localized with 1% lidocaine. Subsequently, a 22- gauge 3.5-inch spinal needle was advanced under a tunneled view fluoroscopic guidance just underneath the chin of the ``Nolan dog . Under lateral fluoroscopy, the needle was then advanced to the posterior border of the foramen. After negative aspiration of CSF and blood and with no paresthesias, 1 mL of Isovue-200 contrast dye was injected under live fluoroscopy and there was no evidence of intravascular injection. The injectate solution consisting of 7.5 mg of dexamethasone with 1 mL of 1% lidocaine was then delivered at each side. A total of 15 mg of dexamethasone was used. The needle was withdrawn intact. At the end of the procedure, skin was cleansed, and bandages were applied. COMPLICATIONS: None COMMENTS: DISPOSITION / PLANS: The patient was placed in a supine position and transferred to the recovery area in a stable condition for observation. There was no evidence of lower extremity motor or sensory deficit after the procedure. Patient was discharged from the recovery room after meeting discharge criteria. Home discharge instructions were given to the patient by the staff. The patient will follow up in clinic in 4 weeks.
== END 2019-05-10 08:07 | disposition home or self-care (01) ==
LOC: ORPAIN 05:50
PROVIDERS: ATTEND Anesthesiology
DX: M51.16 Intervertebral disc disorders with radiculopathy, lumbar region (principal); Z79.1 Long term (current) use of non-steroidal anti-inflammatories (NSAID); Z79.899 Other long term (current) drug therapy; Z87.19 Personal history of other diseases of the digestive system; M19.90 Unspecified osteoarthritis, unspecified site; I34.1 Nonrheumatic mitral (valve) prolapse; R01.1 Cardiac murmur, unspecified; Z90.49 Acquired absence of other specified parts of digestive tract; Z98.51 Tubal ligation status; Z91.030 Bee allergy status; Z91.040 Latex allergy status
CPT/HCPCS: 81025; 64483; J2250; J1100; J3010; Q9966; 99152

== ENCOUNTER → 2019-06-07 | Outpatient (CLI) | payer MEDICAID ==
[2019-06-07 12:12] VITALS: BP 112/74; PULSE 91; RESP 18; TEMP 98.7
--- NOTE | 2019-06-07 12:36 | P.PAINPG ---
Subjective Progress Note Date: 06/07/19 The follow-up visit for this 54 years old female, who was diagnosed with lumbar radiculopathy she continued to have low back pain with radiation to lower extremity with some numbness and tingling sensation, recently we have done transforaminal epidural steroid injection at L5-S1 bilaterally, patient reported that she got some relief after the procedure, she continued to do physical therapy, and she continued to use Motrin when necessary, she denies any motor or sensory deficit she is able to ambulate, Objective - Vital Signs Vital signs: Vital Signs Temp 98.7 F 06/07/19 12:06 Pulse 91 06/07/19 12:06 Resp 18 06/07/19 12:06 BP 112/74 06/07/19 12:06 Pulse Ox Intake & Output 06/06/19 06/07/19 06/07/19 18:59 06:59 18:59 Weight 76.657 kg - Exam Physical Examinations : -Constitutiona : Cooperative , not in acute distress . -HEENT : nech : supple , no Lymphadenopathy , normal thyroid size . eyes : no ptosis , no icterus, no photophobia . - musculoskeltal : Lumber spine moter stegnth lower extremities ,thigh and legs 5/5 Right side , 5/5 Left side Assessment and Plan Plan: Assessment and plan= lumbar radiculopathy, lumbar spondylosis Patient had a good result after transforaminal epidural steroid injection at L5-S1 bilaterally, he continued to have pain Patient could benefit from repeat transforaminal epidural steroid injection at L5-S1 , under fluoroscopy guidance. Patient will continue to do physical therapy, she will continue to use Motrin when necessary Time with Patient: Less than 30 PQRS Measure Charge Sheet Measure #130: Documentation of Current Meds in Medical Chart: Patient's medications documented in chart Measure #226: Tobacco Use: Screen & Cessation Intervention: Pt not a tobacco user Measure #111: Pneumonia Vaccination: Pneumococcal vaccine NOT administered or previously given Measure #47: Advance Care Plan: Advance care planning discussed & documented, pt chose/unable to give Measure #412: Opioid Treatment Agreement: No documentation of signed opioid treatment agreement Measure #408: Opioid Therapy Follow-up Evaluation: Patient had NO f/u eval minimum every 3 months during opioid therapy Measure #317: Preventitive Care & Scrn High Bld Press & F/U: Normal blood pressure, f/u not required Measure #128: Body Mass Index (BMI) Screening & Follow-up: BMI documented ABOVE normal parameters - f/u documented Measure #131: Pain Assessment & Follow-up: Pain positive & plan documented, Follow-up scheduled Measure #431: Unhealthy Alcohol Use Preventative Care & Scrn: Patient not identified as an unhealthy alcohol user PQRS Narrative: Smoking Status Never smoker Blood Pressure 112/74 Pain Intensity [Lower Back] 3 Scale Used Numeric (1 - 10) Hx Alcohol Use (MH) No Home Medications: Ambulatory Orders Acetaminophen Tab [Tylenol Tab] 650 mg PO Q6H PRN MDD P 05/03/19 Ibuprofen [Motrin Ib] 600 mg PO DIRECTED PRN 05/03/19 Controlled Substance Measures - Controlled Substance Measures Is patient prescribed a controlled substance at discharge?: No
== END | disposition home or self-care (01) ==
LOC: PNWHC3 11:58
PROVIDERS: ATTEND Specialist
DX: M47.26 Other spondylosis with radiculopathy, lumbar region (principal); Z79.1 Long term (current) use of non-steroidal anti-inflammatories (NSAID); Z79.899 Other long term (current) drug therapy
CPT/HCPCS: 99211

== ENCOUNTER 2019-06-14 08:53 | Day surgery (SDC) | payer MEDICAID ==
[2019-06-10 11:44] VITALS: BMI 30.5
[~2019-06-14 08:53] MED LIST: LACTATED RINGERS 1,000 ML IV SCH
[2019-06-14 09:56] VITALS: RESP 18; TEMP 99.1
[2019-06-14] MEDS ORDERED: LIDOCAINE 1% 20 ML VIAL (10MG/ML) FOR IV START INTRADERMA ONE (09:56)
[2019-06-14] MEDS ORDERED: LACTATED RINGERS 1,000 ML IV ONE (09:56)
--- NOTE | 2019-06-14 11:04 | P.PCN ---
Date of Procedure: 06/14/19 Procedure(s) Performed: PREOPERATIVE DIAGNOSIS: Lumbar radiculopathy . POSTOPERATIVE DIAGNOSIS: Lumbar radiculopathy . PROCEDURE 1. Transforaminal epidural steroid injection under fluoroscopic guidance at Bilateral L5-S1 level. (Fluoroscopy images stored on file in the radiology Department ) 2. Lumbar epidurogram : ANESTHESIA: Local with 1% lidocaine 3 ml , moderate sedation with intravenous Versed 2 mg and fentanyle 100 micrograms EBL: Minimal PROCEDURE INDICATION: The patient with low back pain and radiculopathy symptoms unresponsive to conservative treatment. PROCEDURE DESCRIPTION / TECHNIQUE: The patient was seen and identified in the preoperative area. Risks, benefits, complications, and alternatives were discussed with the patient. The patient agreed to proceed with the procedure and signed the consent. IV was started, and vital signs were stable. Patient was taken to the OR and time out was completed. The patient was placed in the prone position on procedure table and a pillow was placed under the abdomen to reduce lumbar lordosis. The lumbosacral area was prepped and draped in the usual sterile fashion. Critical pause was taken. Vital signs were closely monitored during the procedure. Conscious sedation was used during the procedure to decrease patient s anxiety. Using oblique fluoroscopy, the chin of the ``Nolan dog at right L5-S1 level was identified, and the skin and deeper tissues just below was localized with 1% lidocaine. Subsequently, a 22-gauge 3.5-inch spinal needle was advanced under a tunneled view fluoroscopic guidance just underneath the chin of the `Emilyy dog at the right L5-S1 . Under lateral fluoroscopy, the needle was then advanced to the posterior border of the Right L5-S1 interforaminal space. After negative aspiration of CSF and blood and with no paresthesias, 1 mL Isovue 200 contrast dye was injected excellent epidurogram and outlining of the nerve root Subsequently, 3 mL of block solution containing 40 mg Depo-medrol and 2 mL of Lidocaine 1% was injected. Needle was removed, and the same procedure was r epeated at the left L5-S1 level (s). At the end of the procedure, skin was cleansed, and bandages were applied. COMPLICATIONS:none DISPOSITION / PLANS: The patient was placed in a supine position and transferred to the recovery area in a stable condition for observation. There was no evidence of lower extremity motor or sensory deficit after the procedure. Patient was discharged from the recovery room after meeting discharge criteria. Home discharge instructions were given to the patient by the staff. The patient was reexamined prior to discharge.
[2019-06-14] MEDS ORDERED: IV FLUID CONTINUATION 1,000 ML IV ONE (11:06)
[2019-06-14 11:26] VITALS: BP 102/62; PULSE 69
--- NOTE | 2019-06-14 14:31 | FL ---
EXAMINATION TYPE: FL guided pain mgmt statistic DATE OF EXAM: 06/14/2019 FLUOROSCOPY Fluoroscopy time of 1 minute 13 seconds was used during lumbar spine pain intervention procedure. 4 image/s document/s the procedure.
== END 2019-06-14 11:46 | disposition home or self-care (01) ==
LOC: ORPAIN 08:53
PROVIDERS: ATTEND Specialist
DX: M54.16 Radiculopathy, lumbar region (principal); Z91.040 Latex allergy status; Z91.030 Bee allergy status; Z88.8 Allergy status to other drugs, medicaments and biological substances
CPT/HCPCS: 81025; 64483; J2250; J1030; J3010; Q9966; 99152

== ENCOUNTER → 2019-06-29 | Outpatient (CLI) | payer MEDICAID ==
[2019-06-29 13:01] VITALS: BP 118/82; PULSE 90; RESP 16
--- NOTE | 2019-06-29 13:14 | P.PN ---
Subjective Progress Note Date: 06/29/19 The follow-up visit for this 34 years old female, who was diagnosed with lumbar radiculopathy, status post transforaminal epidural steroid injection at L5-S1 bilaterally, x2 patient reported that she got excellent pain relief,, and she continued to use Motrin when necessary, she denies any motor or sensory deficit she is able to ambulate, Objective - Vital Signs Vital signs: Vital Signs Temp Pulse 90 06/29/19 12:53 Resp 16 06/29/19 12:53 BP 118/82 06/29/19 12:53 Pulse Ox 97 06/29/19 12:53 Intake & Output 06/28/19 06/29/19 06/29/19 18:59 06:59 18:59 Weight 76.657 kg - Exam Physical Examinations : -Constitutiona : Cooperative , not in acute distress . - musculoskeltal : Lumber spine moter stegnth lower extremities ,thigh and legs 5/5 Right side , 5/5 Left side Assessment and Plan Plan: Assessment and plan=1 lumbar radiculopathy, Pain improved after transforaminal epidural steroid injection at L5-S1 2 She will follow up when necessary Time with Patient: Less than 30
== END ==
LOC: PNWHC3 12:47
PROVIDERS: ATTEND Specialist
DX: M54.16 Radiculopathy, lumbar region (principal); Z79.1 Long term (current) use of non-steroidal anti-inflammatories (NSAID)
CPT/HCPCS: 99211

== ENCOUNTER → 2019-07-19 | Outpatient (CLI) | payer MEDICAID ==
--- NOTE | 2019-07-19 08:35 | US ---
EXAMINATION TYPE: US thyroid st tissue head/neck DATE OF EXAM: 07/19/2019 COMPARISON: NONE CLINICAL HISTORY: 34-year-old female E04.2 goiter. Thyroid nodules TECHNIQUE: Multiple sonographic images of the thyroid gland are obtained. FINDINGS: GLAND SIZE: Right Lobe: 4.5 x 1.1 x 1.7 cm Overall Parenchyma: homogenous Left Lobe: 4.2 x 1.3 x 1.8 cm Overall Parenchyma: homogeneous Isthmus Thickness: .2 cm NODULES RIGHT: Multiple subcentimeter nodules measuring up to 5 mm having the appearance of colloid cysts. LEFT: A single 5 mm posterior upper pole colloid cyst. Bilateral neck scanned, no evidence of lymphadenopathy. 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
== END | disposition home or self-care (01) ==
LOC: RADUSMAIN 07:39
PROVIDERS: ATTEND Physician Assistant Medical
DX: E04.1 Nontoxic single thyroid nodule (principal)
CPT/HCPCS: 76536

== ENCOUNTER 2020-04-08 22:59 | Emergency (ER) | payer MEDICAID, OTHER ==
--- NOTE | 2020-04-08 23:56 | ED ---
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 The door struck her just proximal to the elbow and she is having elbow and forearm pain. She denies loss of MD Complaint: Injury to:: right, elbow, forearm -: minutes(s) Other Injuries: none Handedness: right Place: work Improves With: immobilization Worsens With: movement of extremity Context: direct blow Associated Symptoms: denies other symptoms - Related Data Home Medications Medication Instructions Recorded Confirmed Acetaminophen Tab [Tylenol Tab] 650 mg PO Q6H PRN MDD P 05/03/19 06/29/19 Ibuprofen [Motrin Ib] 600 mg PO DIRECTED PRN 05/03/19 06/29/19 Allergies Allergy/AdvReac Type Severity Reaction Status Date / Time bee venom protein (honey bee) Allergy Anaphylaxis Verified 06/29/19 12:52 latex Allergy Rash/Hives Verified 06/29/19 12:52 Review of Systems ROS Statement: Those systems with pertinent positive or pertinent negative responses have been documented in the HPI. ROS Other: All systems not noted in ROS Statement are negative. Constitutional: Denies: weakness Cardiovascular: Denies: chest pain, palpitations Gastrointestinal: Denies: abdominal pain, vomiting, diarrhea Musculoskeletal: Reports: joint swelling, arthralgia. Denies: back pain Skin: Denies: lesions Neurological: Denies: weakness, numbness, paresthesias Past Medical History Past Medical History: Osteoarthritis (OA) Additional Past Medical History / Comment(s): Mitral valve prolapse with heart murmer, varicose veins, hiatal hernia, thyroid nodules, spina bifida, chronic gastritis, DDD, spinal stenosis, states back injury at work 4-5 yrs ago and several attempts for spinal anesthesia for 02/2019., Has open C- section wound that is healing from inside out., states hemorrhage after c- section and had D&C/blood transfusion- anemic History of Any Multi-Drug Resistant Organisms: None Reported Past Surgical History: Section, Cholecystectomy Additional Past Surgical History / Comment(s): EGD, UMBILICAL HERNIA., WITH TUBAL LIGATION (03/09/2019), POST D & C FOR HEMORRHAGE. 02/2019, Past Anesthesia/Blood Transfusion Reactions: No Reported Reaction Additional Past Anesthesia/Blood Transfusion Reaction / Comment(s): STATES 5-6 UNSUCCESSFUL ATTEMPTS FOR SPINAL WITH Past Psychological History: No Psychological Hx Reported Smoking Status: Never smoker Past Alcohol Use History: None Reported Past Drug Use History: None Reported - Past Family History Mother Family Medical History: No Reported History Additional Family Medical History / Comment(s): arhtritis General Exam Limitations: no limitations General appearance: alert, in no apparent distress Head exam: Present: atraumatic, normocephalic Cardiovascular Exam: Present: other (Radial pulses symmetric and normal in strength) Extremities exam: Present: normal inspection, tenderness, normal capillary refill, joint swelling Right Shoulder Exam: Present: normal inspection, full ROM. Absent: tenderness, swelling, abrasion Upper Arm exam: Present: normal inspection, full ROM. Absent: tenderness, swelling, abrasion Elbow exam: Present: tenderness, swelling. Absent: abrasion, laceration, ecchymosis, deformity, crepitus, dislocation, erythema, effusion Forearm Wrist exam: Present: tenderness, swelling Hand Wrist exam: Present: normal inspection, full ROM. Absent: tenderness, swelling, abrasion, laceration, ecchymosis, deformity, crepitus, dislocation Neurosensory exam: Present: 2-point discrimination, radial nerve intact, ulnar nerve intact, median nerve intact, other Vascular: Present: vascular compromise, normal capillary refill. Absent: pulse deficit radial art Course Vital Signs 04/08/20 04/09/20 23:05 00:53 Temperature 98.7 F 98.8 F Pulse Rate 112 H 88 Respiratory 17 16 Rate Blood Pressure 117/85 108/77 O2 Sat by Pulse 96 99 Oximetry Disposition Clinical Impression: Elbow injury Disposition: HOME SELF-CARE Condition: Good Instructions (If sedation given, give patient instructions): Elbow Sprain (ED) Is patient prescribed a controlled substance at d/c from ED?: No Referrals: Lincoln Wilcox DO [Primary Care Provider] - 1-2 days
--- NOTE | 2020-04-09 00:20 | XR ---
EXAMINATION TYPE: XR forearm RT DATE OF EXAM: 04/09/2020 COMPARISON: NONE HISTORY: Elbow pain TECHNIQUE: 2 views FINDINGS: Radius and ulna appear intact. I see no fracture nor dislocation. Wrist joint and elbow param nt appear intact. IMPRESSION: Negative right forearm exam.
--- NOTE | 2020-04-09 00:21 | XR ---
EXAMINATION TYPE: XR elbow complete RT DATE OF EXAM: 04/09/2020 COMPARISON: NONE HISTORY: Elbow pain TECHNIQUE: 3 views FINDINGS: I see no fracture nor dislocation. Joint spaces are normal. There is no sign of elbow joint effusion. IMPRESSION: Negative right elbow exam.
[2020-04-09 00:54] VITALS: BP 108/77; PULSE 88; RESP 16; TEMP 98.8
== END 2020-04-09 01:31 | disposition home or self-care (01) ==
LOC: EC 22:59
DX: S59.901A Unspecified injury of right elbow, initial encounter (principal); Z91.040 Latex allergy status; Z91.030 Bee allergy status; W20.8XXA Other cause of strike by thrown, projected or falling object, initial encounter; Y92.69 Other specified industrial and construction area as the place of occurrence of the external cause; Y99.0 Civilian activity done for income or pay
CPT/HCPCS: 99283

== ENCOUNTER → 2020-04-12 | Outpatient (CLI) | payer OTHER ==
--- NOTE | 2020-04-12 14:42 | XR ---
EXAMINATION TYPE: XR humerus RT DATE OF EXAM: 04/12/2020 CLINICAL HISTORY: pain COMPARISON: NONE TECHNIQUE: Frontal and lateral images of the right humerus are obtained. FINDINGS: There is no acute fracture/dislocation evident. The joint spaces appear within normal limi ts. The overlying soft tissue appears unremarkable. IMPRESSION: There is no acute fracture or dislocation.ICD 10 NO FRACTURE, INITIAL EVALUATION
== END | disposition home or self-care (01) ==
LOC: RADXRMAIN 14:08
PROVIDERS: ATTEND Emergency Medicine
DX: S40.012A Contusion of left shoulder, initial encounter (principal)

== ENCOUNTER → 2021-01-25 | Outpatient (CLI) | payer OTHER ==
--- NOTE | 2021-01-26 07:58 | XR ---
EXAMINATION TYPE: XR Hip Complete LT DATE OF EXAM: 01/25/2021 CLINICAL HISTORY: pain TECHNIQUE: AP and frogleg views of the left hip are obtained. COMPARISON: None. FINDINGS: There is no acute fracture/dislocation evident. The joint space appears within normal li mits. The overlying soft tissue appears unremarkable. IMPRESSION: 1. There is no acute fracture or dislocation.ICD 10 NO FRACTURE, INITIAL EVALUATION
== END | disposition home or self-care (01) ==
LOC: RADXRYALE 15:48
PROVIDERS: ATTEND Physician Assistant Medical
DX: M25.552 Pain in left hip (principal)
CPT/HCPCS: 73502

== ENCOUNTER → 2022-07-16 | Outpatient (CLI) | payer BC ==
--- NOTE | 2022-07-17 07:42 | XR ---
EXAMINATION TYPE: XR foot complete RT, XR ankle complete RT DATE OF EXAM: 07/16/2022 COMPARISON: None HISTORY: [id number] RT FOOT PAIN TECHNIQUE: Frontal, lateral and oblique images of the right ankle are obtained. Frontal, lateral, an d oblique images of the right foot are obtained. COMPARISON: None. FINDINGS: There is no acute fracture/dislocation evident. The joint spaces appear within normal gongora its. The ankle mortise is intact. The overlying soft tissue appears unremarkable. No radiopaque forei gn bodies. IMPRESSION: There is no acute fracture or dislocation seen.
--- NOTE | 2022-07-17 07:42 | XR ---
EXAMINATION TYPE: XR foot complete RT, XR ankle complete RT DATE OF EXAM: 07/16/2022 COMPARISON: None HISTORY: [id number] RT FOOT PAIN TECHNIQUE: Frontal, lateral and oblique images of the right ankle are obtained. Frontal, lateral, an d oblique images of the right foot are obtained. COMPARISON: None. FINDINGS: There is no acute fracture/dislocation evident. The joint spaces appear within normal gongora its. The ankle mortise is intact. The overlying soft tissue appears unremarkable. No radiopaque forei gn bodies. IMPRESSION: There is no acute fracture or dislocation seen.
== END | disposition home or self-care (01) ==
LOC: RADXRYALE 16:07
PROVIDERS: ATTEND Physician Assistant Medical
DX: M79.671 Pain in right foot (principal)

== ENCOUNTER → 2023-12-12 | Outpatient (CLI) | payer BC ==
--- NOTE | 2023-12-12 18:10 | US ---
EXAMINATION TYPE: US thyroid st tissue head/neck DATE OF EXAM: 12/12/2023 COMPARISON: US 2019 CLINICAL INDICATION: Female, 38 years old with history of E04.2 NONTOXIC MULTINODULAR GOITER; GLAND SIZE: Right Lobe: 5.2 x 1.3 x 1.8 cm Overall Parenchyma: homogeneous Left Lobe: 4.9 x 1.4 x 1.6 cm Overall Parenchyma: homogeneous Isthmus Thickness: 0.1 cm NODULES RIGHT: # of nodules measured on right: multiple subcentimeter nodules seen with largest measuring 0.4 cm LEFT: # of nodules measured on left: multiple subcentimeter nodules seen with largest measuring 0.4c m ISTHMUS: # of nodules measured in the isthmus: 0 Bilateral neck scanned, no evidence of lymphadenopathy. IMPRESSION: No thyroid nodules over 1.0 cm in size that would meet criteria for characterization by ACR TIRADS.
== END | disposition home or self-care (01) ==
LOC: RADUSWWP 16:00
PROVIDERS: ATTEND Family Medicine
DX: E04.2 Nontoxic multinodular goiter (principal)
CPT/HCPCS: 76536